=== PATIENT | female | born 1970 | race American Indian/Alaskan Native ===

== ENCOUNTER 2016-12-25 23:23 | Emergency (ER) | payer SELFPAY ==
[2016-12-26 01:02] LABS: Bacteria,Urine 2+ /HPF (Negative); Bilirubin,Urine NEG (Negative); Blood,Urine NEG (Negative); Ketones,Urine NEG (Negative); Leukocyte Esterase,Urine LG (Negative); Mucus,Urine 1+ /HPF; Nitrite,Urine NEG (Negative); Urobilinogen,Urine < 2.0 mg/dL (<2.0)
--- NOTE | 2016-12-26 03:07 | Emergency Department Report ---
ED Female HPI - General Chief complaint: Urogenital-Female Stated complaint: VAG DISCHARGE W/ ODOR Source: patient Mode of arrival: Ambulatory Limitations: No Limitations - History of Present Illness Initial comments: 46-year-old female past medical history none presents with complaint of 3 days of vaginal odor which is fish she with some dysuria and whitish vaginal discharge. Patient denies nausea vomiting fever chills or abdominal pain. Denies vaginal bleeding or spotting. States she noticed slight irritation of her vagina with whitish discharge 3 days ago. Currently sexually active with one partner. Denies any history of any STDs. MD Complaint: vaginal discharge Onset/Timin -: days(s) Quality: burning Consistency: intermittent Worsens with: urination Are you Now?: No Last Menstrual Period: 11/26/16 EDC: 09/02/17 Associated Symptoms: vaginal discharge (whitish vaginal discharge) - Related Data Sexually active: Yes Previous Rx's Medication Instructions Recorded Last Taken Type Nitrofurantoin [place]/M-Cryst 100 mg PO Q12HR #14 capsule 12/26/16 Unknown Rx [Macrobid CAP] metroNIDAZOLE [Flagyl TAB] 500 mg PO Q12HR #14 tab 12/26/16 Unknown Rx Allergies Allergy/AdvReac Type Severity Reaction Status Date / Time Penicillins Allergy Hives Verified 12/25/16 23:36 ED Review of Systems ROS: Stated complaint: VAG DISCHARGE W/ ODOR Other details as noted in HPI Constitutional: denies: chills, fever Eyes: denies: eye pain, eye discharge, vision change ENT: denies: ear pain, throat pain Respiratory: denies: cough, shortness of breath, wheezing Cardiovascular: denies: chest pain, palpitations Endocrine: no symptoms reported Gastrointestinal: denies: abdominal pain, nausea, diarrhea Genitourinary: urgency, discharge (whitish vaginal discharge). denies: dysuria Musculoskeletal: denies: back pain, joint swelling, arthralgia Skin: denies: rash, lesions Neurological: denies: headache, weakness, paresthesias Psychiatric: denies: anxiety, depression Hematological/Lymphatic: denies: easy bleeding, easy bruising ED Past Medical Hx - Past Medical History Previous Medical History?: No - Surgical History Past Surgical History?: Yes Additional Surgical History: C SECTION X 1 - Social History Smoking Status: Never Smoker Substance Use Type: None - Medications Home Medications: Home Medications Medication Instructions Recorded Confirmed Last Taken Type Nitrofurantoin [place]uel/M-Cryst 100 mg PO Q12HR #14 capsule 12/26/16 Unknown Rx [Macrobid CAP] metroNIDAZOLE [Flagyl TAB] 500 mg PO Q12HR #14 tab 12/26/16 Unknown Rx ED Physical Exam - General Limitations: No Limitations General appearance: alert, in no apparent distress - Head Head exam: Present: atraumatic, normocephalic - Eye Eye exam: Present: normal appearance, PERRL, EOMI - ENT ENT exam: Present: mucous membranes moist - Neck Neck exam: Present: normal inspection, full ROM - Respiratory Respiratory exam: Present: normal lung sounds bilaterally. Absent: respiratory distress - Cardiovascular Cardiovascular Exam: Present: regular rate, normal rhythm. Absent: systolic murmur, diastolic murmur, rubs, gallop - GI/Abdominal GI/Abdominal exam: Present: soft, normal bowel sounds - External exam: Present: normal external exam Speculum exam: Present: vaginal discharge (whitish vaginal discharge, fishy odor ) Bi-manual exam: Present: normal bi-manual exam - Extremities Exam Extremities exam: Present: normal inspection - Back Exam Back exam: Present: normal inspection - Neurological Exam Neurological exam: Present: alert, oriented X3, CN II-XII intact, normal gait - Psychiatric Psychiatric exam: Present: normal affect, normal mood - Skin Skin exam: Present: warm, dry, intact, normal color. Absent: rash ED Course Vital Signs 12/25/16 23:36 Temperature 99.1 F Pulse Rate 97 H Respiratory 20 Rate Blood Pressure 136/89 O2 Sat by Pulse 98 Oximetry ED Medical Decision Making - Medical Decision Making A/P: Bacterial vaginosis 1-treatment with metronidazole 2-follow-up with [facility] 3-patient has moderate amount of leukocytes in urine with complete of slight dysuria will treat empirically with Macrobid 4- urine and gc cultures sent Critical care attestation.: If time is entered above; I have spent that time in minutes in the direct care of this critically ill patient, excluding procedure time. ED Disposition Clinical Impression: Bacterial vaginosis Disposition: DC-01 TO HOME OR SELFCARE Is pt being admited?: No Does the pt Need Aspirin: No Condition: Stable Instructions: Bacterial Vaginosis (ED), Urinary Tract Infection in Women (ED) Prescriptions: metroNIDAZOLE [Flagyl TAB] 500 mg PO Q12HR #14 tab Nitrofurantoin Deuel/M-Cryst [Macrobid CAP] 100 mg PO Q12HR #14 capsule Referrals: [facility] [Provider Group] - 3-5 Days Forms: STI Treatment and Prevention, Work/School Release Form(ED) Time of Disposition: 03:01
[2016-12-26 04:46] VITALS: BP 126/80
== END 2016-12-26 04:46 | disposition home or self-care (01) ==
LOC: ED 23:23
DX: N76.0 Acute vaginitis (principal)
CPT/HCPCS: 81001; 87086; 87210; 87591

== ENCOUNTER 2019-03-07 08:26 | Emergency (ER) | payer SELFPAY ==
[2019-03-07 08:31] VITALS: BP 122/75
--- NOTE | 2019-03-07 09:19 | Emergency Department Report ---
HPI - General Chief Complaint: Extremity Injury, Lower Time Seen by Provider: 03/07/19 09:01 - HPI HPI: 49-year-old female presents to the emergency department with a complaint of a 5 week history of right knee pain after she stepped in a hole while doing her job for [employer]. She was seen at [facility] last week and had an x-ray done that apparently was negative for any fracture, dislocation or acute process. She was referred to an orthopedic surgeon but she has not seen them secondary to financial issues. She says that the anterior knee is the portion that is most painful. She has some swelling to the knee. She also says it is difficult to fully extend the knee. The patient says that she has taken some ibuprofen without much relief. She also has a knee immobilizer and crutches at home, which she says has not been helping. ED Past Medical Hx - Past Medical History Previous Medical History?: No - Surgical History Past Surgical History?: Yes Additional Surgical History: C SECTION X 1 - Social History Smoking Status: Never Smoker Substance Use Type: None - Medications Home Medications: Home Medications Medication Instructions Recorded Confirmed Last Taken Type Nitrofurantoin [place]/M-Cryst 100 mg PO Q12HR #14 capsule 12/26/16 Unknown Rx [Macrobid CAP] metroNIDAZOLE [Flagyl TAB] 500 mg PO Q12HR #14 tab 12/26/16 Unknown Rx HYDROcodone/APAP 5-325 [[place] 1 each PO Q6HR PRN #12 tablet 03/07/19 Unknown Rx 5/325] ED Review of Systems ROS: Stated complaint: RT KNEE SWELLING Other details as noted in HPI Comment: All other systems reviewed and negative Constitutional: denies: chills, fever Musculoskeletal: joint swelling, arthralgia, myalgia Neurological: denies: numbness, paresthesias Physical Exam - Physical Exam Vital Signs: Vital Signs 03/07/19 08:29 Temperature 98.2 F Pulse Rate 87 Respiratory 16 Rate Blood Pressure 122/75 O2 Sat by Pulse 98 Oximetry Physical Exam: GENERAL: The patient is well-developed well-nourished. HENT: Normocephalic. Atraumatic. Patient has moist mucous membranes. EYES: Extraocular motions are intact. NECK: Supple. Trachea is midline. ABDOMEN: There is no abdominal distention. SKIN: Skin is warm and dry. NEURO: The patient is awake, alert, and oriented. The patient is cooperative. The patient has no focal neurologic deficits. Normal speech. MUSCULOSKELETAL: There is some reproducible tenderness to palpation to the anterior right knee but no obvious deformity. Negative anterior and posterior drawer test of the affected right knee. No laxity with valgus or varus stress. ED Course Vital Signs 03/07/19 08:29 Temperature 98.2 F Pulse Rate 87 Respiratory 16 Rate Blood Pressure 122/75 O2 Sat by Pulse 98 Oximetry ED Medical Decision Making - Medical Decision Making This patient presents with a 5 week history of right knee pain after stepping in a hole. She has not been evaluated at another hospital and had x-rays done that did not show any fracture or dislocation. She was instructed to follow-up with an orthopedist and has not done so. There has been no new trauma or injury. I recommended a repeat x-ray but the patient did not want this done as she had he had a negative one about one week ago. She was offered a knee immobilizer and crutches but she also says that she has this at home available to her. I explained to her the importance of following up with an orthopedist as or could be some underlying tendon, ligament or meniscus injury that needs to be evaluated and may need an MRI. She was given more referrals for orthopedics. She will return to the emergency Department with any acute distress. - Differential Diagnosis fracture, joint effusion, tendinitis, bursitis, meniscus tear Critical Care Time: No Critical care attestation.: If time is entered above; I have spent that time in minutes in the direct care of this critically ill patient, excluding procedure time. ED Disposition Clinical Impression: Right knee injury Qualifiers: Encounter type: initial encounter Qualified Code(s): S89.91XA - Unspecified injury of right lower leg, initial encounter Right knee pain Qualifiers: Chronicity: acute Qualified Code(s): M25.561 - Pain in right knee Disposition: DC-01 TO HOME OR SELFCARE Is pt being admited?: No Condition: Stable Instructions: Knee Pain (ED), Arthralgia (ED) Additional Instructions: I am giving you a referral for 2 different orthopedic groups, Dr. Bradford and Dean. I recommend using the knee immobilizer and crutches to be nonweightbearing to your right knee until follow-up with the orthopedist. Return to the emergency Department with any worsening of your symptoms or any acute distress. You have been prescribed a medication that is sedating and therefore should not be taken prior to driving, working, and responsible for children and in no way should be mixed with alcohol of any quantity. Prescriptions: HYDROcodone/APAP 5-325 [[place] 5/325] 1 each PO Q6HR PRN #12 tablet PRN Reason: Pain Referrals: AUSTIN BRADFORD MD [Staff Physician] - 2-3 Days [facility] [Provider Group] - 2-3 Days Time of Disposition: 09:19
== END 2019-03-07 09:30 | disposition home or self-care (01) ==
LOC: ED 08:26
DX: S89.91XA Unspecified injury of right lower leg, initial encounter (principal); M25.561 Pain in right knee; Z98.890 Other specified postprocedural states; Z79.899 Other long term (current) drug therapy; Z88.0 Allergy status to penicillin; X50.0XXA Overexertion from strenuous movement or load, initial encounter; Y93.89 Activity, other specified; Y92.69 Other specified industrial and construction area as the place of occurrence of the external cause; Y99.0 Civilian activity done for income or pay
CPT/HCPCS: 99281; 99282